=== PATIENT | male | born 1955 | race Caucasian/White ===

== ENCOUNTER → 2016-08-06 | Outpatient (CLI) | payer OTHER ==
[~2016-08-06] MED LIST: ASPI81TA28 PO; CALC12502 PO; CALC500C3 PO; CARB25TA16 PO; CHOL100010 PO; CHOL20007 PO; CHOLTAB3 PO; CYAN3INJ IM; CYNI1000 IM; FERR325T51 PO; FRRS300 PO; INSDGIPEN SC; INSUINJ4 SQ; NVLGI SC; NVLGI/PEN SQ; SERT50TA PO; SIMV10TA2 PO
[2016-08-06 14:56] LABS: URINE APPEARANCE CLEAR (CLEAR); URINE BILIRUBIN NEG (NEG); URINE COLOR YELLOW; URINE NITRITE NEG (NEG); URINE SPECIFIC GRAVITY 1.024 (1.000-1.030); UROBILINOGEN NEG (NEG)
[2016-08-06 15:14] LABS: MANUAL MICROSCOPIC REQUIRED? NO; REVIEW REQ? YES
== END | disposition home or self-care (01) ==
LOC: C.LAB1850 12:32
PROVIDERS: ATTEND Internal Medicine
DX: R35.0 Frequency of micturition (principal); R30.9 Painful micturition, unspecified

== ENCOUNTER → 2016-08-18 | Outpatient (CLI) | payer OTHER ==
--- NOTE | 2016-08-18 11:58 | DIAGNOSTIC IMAGING REPORT ---
ULTRASOUND KIDNEYS AND BLADDER CLINICAL HISTORY: Urinary frequency. Dysuria. COMPARISON STUDY: Abdominal CT dated 02/19/2010. TECHNIQUE: Real-time, grayscale, and color flow sonography of the kidneys and bladder is performed. Images are reviewed in the transverse and longitudinal planes. FINDINGS: Kidneys: The kidneys are normal in size and echotexture. The right kidney measures 10.0 cm in length and the left kidney measures 10.5 cm in length. There is no hydronephrosis. No shadowing renal calculi are identified. There is no sonographic evidence of contour deforming renal mass lesion. No perinephric fluid is identified. Bladder: The prostate gland is mildly enlarged and demonstrates median lobe hypertrophy. A shadowing calcification is noted in the prostate gland. The bladder is partially decompressed and grossly unremarkable. Bilateral ureteral jets were seen. IMPRESSION: 1. The kidneys are normal in size and without hydronephrosis. 2. Prostatomegaly. 3. The bladder is partially decompressed and grossly unremarkable. Electronically signed by: John Foss M.D. 08/18/2016 11:56 AM Dictated Date/Time: 08/18/2016 11:54 AM
== END | disposition home or self-care (01) ==
LOC: C.ULTR 10:39
PROVIDERS: ATTEND Internal Medicine
DX: R30.0 Dysuria (principal); R35.0 Frequency of micturition; N40.0 Benign prostatic hyperplasia without lower urinary tract symptoms

== ENCOUNTER 2016-08-31 02:11 | Emergency (ER) | payer OTHER ==
[~2016-08-31] VITALS: Ht 157.5 cm; Wt 52.2 kg
[~2016-08-31 02:11] MED LIST changes: -CALC12502 PO; -CHOL20007 PO; -CYNI1000 IM; -FRRS300 PO; -INSDGIPEN SC; -NVLGI/PEN SQ
[2016-08-31 02:14] VITALS: TEMP 36.9; Ht 157.5 cm; Wt 52.2 kg
[2016-08-31 04:12] LABS: BASO % 0.5 %; BASO ABS # 0.03 K/uL (0-0.2); COMPLETE YES; EOS % 0.5 %; HEMATOCRIT 43.9 % (42-52); LYMPH % 19.9 %; LYMPH ABS # 1.12 K/uL (1.2-3.4); MEAN CELL VOLUME 98.2 fL (80-100); MEAN CORPUSCULAR HEMOGLOBIN 33.8 pg (25-34); MEAN CORPUSCULAR HGB CONC 34.4 g/dl (32-36); MEAN PLATELET VOLUME 11.1 fL (7.4-10.4); MONO % 10.6 %; NEUT % 68.5 %; PLATELET COUNT 174 K/uL (130-400); RED BLOOD COUNT 4.47 M/uL (4.7-6.1); WHITE BLOOD COUNT 5.64 K/uL (4.8-10.8)
[2016-08-31 04:41] LABS: BLOOD UREA NITROGEN 22 mg/dl (7-18); CALCIUM 9.4 mg/dl (8.5-10.1); CARBON DIOXIDE 34 mmol/L (21-32); CHLORIDE 104 mmol/L (98-107); GLUCOSE 46 mg/dl (70-99); POTASSIUM 3.9 mmol/L (3.5-5.1); SODIUM 145 mmol/L (136-145)
[2016-08-31] MEDS ORDERED: ONDANSETRON INJ 2 MG/ML 2 ML VIAL IV STA (04:49)
--- NOTE | 2016-08-31 06:25 | EMERGENCY ROOM VISIT NOTE ---
History First contact with patient: 02:23 Chief Complaint: OTHER COMPLAINT Stated Complaint: DIABETIC - VOMITING NOT SURE IF HIGH OR LOW History of Present Illness The patient is a 61 year old male who presents to the Emergency Room with complaints of one episode of vomiting that is completely resolved he was to be monitored for his blood sugar who is diabetic. Patient states he took 6 units of short-acting insulin before eating tonight. His blood sugar was 234 prior to doing this. He threw up and now feels much better. He did this at midnight. He has not repeated his blood sugars since then. Patient denies chest pain, dyspnea, abdominal pain, fever, chills, diarrhea, polydipsia, polyuria, lightheadedness, dizziness, weakness, syncope, cold symptoms or any other medical complaints. Patient states she just wants to have his blood sugar checked out and hang out here for a while. Review of Systems See HPI for pertinent positives & negatives. A total of 10 systems reviewed and were otherwise negative. Past Medical/Surgical History Medical Problems: (1) Dementia, Unspecified, Without Behavioral Disturbance (2) Diab W Oth Spec Manifest, Type I [Juvenile Type], Not Uncntr (3) Hyperglycemia (4) Hyperglycemia (5) Hyperlipidemia Nec/Nos (6) Hypoglycemia Nos (7) Insulin overdose (8) Mood disorder (9) Parkinson disease (10) Schizophrenia Nos-Unspec Family History Hypertension Social History Smoking Status: Former Smoker Alcohol Use: none Drug Use: none Marital Status: single Housing Status: other Occupation Status: disabled Current/Historical Medications Scheduled Aspirin (Aspirin Ec), 81 MG PO QAM Carbidopa/Levodopa (Sinemet Cr 25MG/100MG), 1 TAB PO QID Cholecalciferol (Vitamin D), 2,000 INTER.UNIT PO QAM Cyanocobalamin (Vitamin B-12 Inj), 1,000 MCG IM MONTHLY Ferrous Sulfate (Iron Supplement), 325 MG PO QPM Insulin Aspart (Novolog), 6 UNITS SC TIDM Insulin Glargine (Lantus Solostar Pen), 14 UNITS SQ DAILY @NOON Sertraline (Zoloft), 50 MG PO QPM Simvastatin (Zocor), 10 MG PO QPM Scheduled PRN Calcium Carbonate (Tums), 1 TAB PO Q4 PRN for GI Upset Allergies Coded Allergies: No Known Allergies (Unverified , 12/02/15) Physical Exam Vital Signs Date Time Temp Pulse Resp B/P Pulse Ox O2 Delivery O2 Flow Rate FiO2 08/31/16 04:30 57 18 134/75 97 Room Air 08/31/16 02:14 36.9 79 20 136/89 94 Room Air Physical Exam VITALS: Vitals are noted on the nurse's note and reviewed by myself. Vital signs stable. GENERAL: Disheveled male answering questions appropriately, in no acute distress , nondiaphoretic, well-developed well-nourished. SKIN: The skin was without rashes, erythema, edema, or bruising. There is no tenting of the skin. Capillary reflex less than 2 seconds. HEAD: Normocephalic atraumatic. EARS: External auditory canals clear, tympanic membranes pearly garcia without erythema or effusion bilaterally. EYES: Pupils equal round and reactive to light and accommodation. Conjunctivae without injection, sclerae without icterus. Extraocular movements intact. NOSE: Patent, turbinates without inflammation or discharge. MOUTH: Mucous membranes moist. Pharynx without erythema or exudate. Uvula midline. Airway patent. Tongue does not deviate. NECK: Supple without nuchal rigidity. No lymphadenopathy. No thyromegaly. Cervical spine is nontender. No JVD. HEART: Regular rate and rhythm LUNGS: Clear to auscultation bilaterally without wheezes, rales or rhonchi. No dullness to percussion. No retractions or accessory muscle use. ABDOMEN: Positive bowel sounds x 4. Normal tympanic percussion. Soft, nontender, without masses or organomegaly. Billy sign negative. No guarding or rebound tenderness. MUSCULOSKELETAL: No muscle atrophy, erythema, or edema noted. NEURO: Patient was alert and oriented to person place and time. Normal sensation to light and sharp touch. No focal neurological deficits. Medical Decision & Procedures Laboratory Results 08/31/16 04:00 Red Blood Count 4.47, Mean Corpuscular Volume 98.2, Mean Corpuscular Hemoglobin 33.8, Mean Corpuscular Hemoglobin Concent 34.4, Mean Platelet Volume 11.1, Neutrophils (%) (Auto) 68.5, Lymphocytes (%) (Auto) 19.9, Monocytes (%) (Auto) 10.6, Eosinophils (%) (Auto) 0.5, Basophils (%) (Auto) 0.5, Neutrophils # (Auto ) 3.86, Lymphocytes # (Auto) 1.12, Monocytes # (Auto) 0.60, Eosinophils # (Auto ) 0.03, Basophils # (Auto) 0.03 08/31/16 04:00 Test 08/31/16 04:00 08/31/16 05:58 08/31/16 06:08 White Blood Count 5.64 K/uL (4.8-10.8) Red Blood Count 4.47 M/uL (4.7-6.1) Hemoglobin 15.1 g/dL (14.0-18.0) Hematocrit 43.9 % (42-52) Mean Corpuscular Volume 98.2 fL (80-100) Mean Corpuscular Hemoglobin 33.8 pg (25-34) Mean Corpuscular Hemoglobin Concent 34.4 g/dl (32-36) Platelet Count 174 K/uL (130-400) Mean Platelet Volume 11.1 fL (7.4-10.4) Neutrophils (%) (Auto) 68.5 % Lymphocytes (%) (Auto) 19.9 % Monocytes (%) (Auto) 10.6 % Eosinophils (%) (Auto) 0.5 % Basophils (%) (Auto) 0.5 % Neutrophils # (Auto) 3.86 K/uL (1.4-6.5) Lymphocytes # (Auto) 1.12 K/uL (1.2-3.4) Monocytes # (Auto) 0.60 K/uL (0.11-0.59) Eosinophils # (Auto) 0.03 K/uL (0-0.5) Basophils # (Auto) 0.03 K/uL (0-0.2) RDW Standard Deviation 48.1 fL (36.4-46.3) RDW Coefficient of Variation 13.4 % (11.5-14.5) Immature Granulocyte % (Auto) 0.0 % Immature Granulocyte # (Auto) 0.00 K/uL (0.00-0.02) Anion Gap 7.0 mmol/L (3-11) Est Creatinine Clear Calc Drug Dose 70.7 ml/min Estimated GFR () 111.0 Estimated GFR (Non- 95.7 BUN/Creatinine Ratio 28.0 (10-20) Calcium Level 9.4 mg/dl (8.5-10.1) Troponin I < 0.015 ng/ml (0-0.045) Bedside Glucose 175 mg/dl (70-99) Bedside Troponin I 0.000 ng/ml (0-0.045) Medications Administered Medications (Trade) Dose Ordered Sig/Emelina Route Start Time Stop Time Status Last Admin Dose Admin Ondansetron HCl (Zofran Inj) 4 mg NOW STAT IV 08/31/16 04:49 08/31/16 04:50 DC 08/31/16 04:54 4 MG ED Course Prior records/ancillary studies reviewed. Triage Nursing notes reviewed. The patient's history was concerning for nausea, vomiting, that has now resolved. Differential diagnosis: Etiologies such as gastritis, food borne illness, infections, obstruction, blood sugar abnormality, as well as others were entertained. Physical examination findings: As above. Abdominal examination revealed no tenderness. Vital signs reviewed and revealed stable. ER treatment provided: Juice, peanut butter and crackers On reassessment the patient felt better. Patient was tolerating p.o. intake. Diagnostics interpretation by me: EKG: Normal sinus, no acute ST-T changes, frequent PACs, normal axis. EKG compared to prior EKG with previous frequent PACs noted. Impression normal sinus rhythm with frequent PACs interpreted by myself The labs revealed fingerstick of 55. Repeat was still low so further blood work was ordered Stable H&H 2 negative troponins 2 hours apart This appears to be consistent with vomiting times once that has resolved on its own with low blood sugar that is now resolved. The patient just one to be observed for a few hours to make sure his blood sugar was okay. I felt this is reasonable. He was asymptomatic. He ate a full meal while he was here. Stable vital signs. Repeat blood sugar was improved. 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 He was advised to return to the ER me the for weakness, fevers , blood glucose problems, worsening signs or symptoms or as needed. He was advised follow-up family care in a few days. By the evaluation outlined above emergent etiologies such as appendicitis, diverticulitis, obstruction, cardiac sources, mesenteric ischemia, aortic pathology, inflammatory bowel disease, renal colic, PUD, biliary pathology, UTI, as well as others were deemed relatively unlikely. The pt informed about the findings as listed above. All questions were answered and pleased with the treatment. Return instructions were outlined and the patient was discharged in stable condition. Referral: The patient was referred to their primary care physician for follow-up in 2 to 3 days for a recheck of the current condition. Case reviewed with my attending. Medical Decision as above Impression Primary Impression: Hypoglycemia Nos Departure Information Dispostion Home / Self-Care Condition GOOD Referrals Marcelo Hardin M.D. (PCP) Patient Instructions My [facility] Additional Instructions Monitor your blood sugars. Eat regular meals. Continue your current medications. Follow up with family care in 2-3 days. Return to ER sooner for chest pain, difficulty breathing, blood sugar problems, weakness, fevers, worsening signs or symptoms or as needed.
[2016-08-31 06:34] VITALS: BP 109/68; PULSE 76; O2SAT 95
[2016-08-31] MEDS ORDERED: CHOL20007 PO (19:47)
[2016-08-31] MEDS ORDERED: CALC12502 PO (19:55)
== END 2016-08-31 06:32 | disposition home or self-care (01) ==
LOC: C.EDB 02:13 → C.EDA 06:32
DX: E10.649 Type 1 diabetes mellitus with hypoglycemia without coma (principal); F03.90 Unspecified dementia, unspecified severity, without behavioral disturbance, psychotic disturbance, mood disturbance, and anxiety; E78.5 Hyperlipidemia, unspecified; F39 Unspecified mood [affective] disorder; G20 Parkinson's disease; F20.9 Schizophrenia, unspecified; Z87.891 Personal history of nicotine dependence; Z79.82 Long term (current) use of aspirin; Z79.4 Long term (current) use of insulin

== ENCOUNTER 2016-08-31 18:56 | Emergency (ER) | payer OTHER ==
[~2016-08-31] VITALS: Ht 157.5 cm; Wt 52.2 kg
[2016-08-31 19:01] VITALS: TEMP 36.9; Ht 157.5 cm; Wt 52.2 kg
[2016-08-31] MEDS ORDERED: SODIUM CHLORIDE 0.9% 1000ML 1,000 ML IV STA (19:10)
[2016-08-31] MEDS ORDERED: NovoLIN-R INSULIN PER UNIT CHARGE IV STA (19:36)
[2016-08-31 19:46] LABS: ISTAT CREATININE 0.8 mg/dl (0.6-1.3); ISTAT IONIZED CALCIUM 1.14 mmol/l (1.12-1.32)
[2016-08-31] MEDS ORDERED: CHOL20007 PO (19:47)
[2016-08-31 19:49] LABS: URINE APPEARANCE CLEAR (CLEAR); URINE BILIRUBIN NEG (NEG); URINE COLOR YELLOW; URINE EPITHELIAL CELL AUTO 0-5 /lpf (0-5); URINE NITRITE NEG (NEG); URINE PH 7.5 (4.5-7.5); URINE SPECIFIC GRAVITY 1.039 (1.000-1.030); UROBILINOGEN NEG (NEG); ZZUR CULT IF INDIC CLEAN CATCH NO
[2016-08-31 19:50] LABS: MANUAL MICROSCOPIC REQUIRED? NO; REVIEW REQ? NO
[2016-08-31] MEDS ORDERED: CALC12502 PO (19:55)
[2016-08-31 20:49] VITALS: BP 105/72; PULSE 66; O2SAT 99
--- NOTE | 2016-08-31 20:50 | EMERGENCY ROOM VISIT NOTE ---
History Report prepared by Kimmy: Erickson Rankin Under the Supervision of: Dr. Milton Garcia M.D. First contact with patient: 19:05 Chief Complaint: OTHER COMPLAINT Stated Complaint: HIGH BLOOD SUGAR History of Present Illness The patient is a 61 year old male who presents to the Emergency Room with complaints of sudden hyperglycemia beginning just prior to arrival. He notes he was seen in the ED this morning for hypoglycemia. The patient states his BSG was almost 500. He notes he was told to only take 3 units. The patient states he vomited this morning, but has not vomited since. He denies chest pain, abdominal pain, and vomiting. The patient notes he lives alone. Source of History: patient Onset: just prior to arrival Position: other (global) Quality: other (hyperglycemia) Timing: other (sudden) Associated Symptoms: No abdominal pain, No chest pain, No vomiting Review of Systems See HPI for pertinent positives & negatives. A total of 10 systems reviewed and were otherwise negative. Past Medical & Surgical Medical Problems: (1) Dementia, Unspecified, Without Behavioral Disturbance (2) Diab W Oth Spec Manifest, Type I [Juvenile Type], Not Uncntr (3) Hyperglycemia (4) Hyperglycemia (5) Hyperlipidemia Nec/Nos (6) Hypoglycemia Nos (7) Insulin overdose (8) Mood disorder (9) Parkinson disease (10) Schizophrenia Nos-Unspec Family History Hypertension Social History Smoking Status: Never Smoker Alcohol Use: none Drug Use: none Marital Status: single Housing Status: other Occupation Status: disabled Current/Historical Medications Scheduled Aspirin (Aspirin Ec), 81 MG PO QAM Calcium Carbonate (Os-Kenneth 500), 1,000 MG PO BID Carbidopa/Levodopa (Sinemet Cr 25MG/100MG), 1 TAB PO QID Cholecalciferol (Vitamin D3), 1 TAB PO DAILY Cyanocobalamin (Vitamin B-12 Inj), 1,000 MCG IM MONTHLY Ferrous Sulfate (Iron Supplement), 325 MG PO QPM Insulin Aspart (Novolog), 6 UNITS SC TIDM Insulin Glargine (Lantus Solostar Pen), 14 UNITS SQ DAILY @NOON Sertraline (Zoloft), 50 MG PO QPM Simvastatin (Zocor), 10 MG PO QPM Allergies Coded Allergies: No Known Allergies (Unverified , 12/02/15) Physical Exam Vital Signs Date Time Temp Pulse Resp B/P Pulse Ox O2 Delivery O2 Flow Rate FiO2 08/31/16 20:49 66 16 105/72 99 Room Air 08/31/16 19:01 36.9 80 20 122/77 94 Room Air Physical Exam GENERAL: Patient is unkempt appearing, in no distress, and vomit on his pants. HEENT: No acute trauma, normocephalic atraumatic, mucous membranes moist, no nasal congestion, no scleral icterus. NECK: No stridor, no adenopathy, no meningismus, trachea is midline. LUNGS: No dyspnea. Clear to auscultation and equal bilaterally. No wheeze, no rhonchi. HEART: Regular rate and rhythm. No murmurs, rubs, gallops appreciated. ABDOMEN: Soft, nontender, bowel sounds positive, no masses appreciated, no peritonitis. BACK: No midline tenderness, no CVA tenderness EXTREMITIES: Normal motion all extremities, no cyanosis, no edema. NEUROLOGIC: Alert and oriented, no acute motor or sensory deficits, no focal weakness, cranial nerves grossly intact. SKIN: No rash, no jaundice, no diaphoresis. Medical Decision & Procedures Laboratory Results Test 08/31/16 19:25 08/31/16 19:31 08/31/16 20:47 Urine Color YELLOW Urine Appearance CLEAR (CLEAR) Urine pH 7.5 (4.5-7.5) Urine Specific Claridge 1.039 (1.000-1.030) Urine Protein NEG (NEG) Urine Glucose (UA) 3+ (NEG) Urine Ketones NEG (NEG) Urine Occult Blood NEG (NEG) Urine Nitrite NEG (NEG) Urine Bilirubin NEG (NEG) Urine Urobilinogen NEG (NEG) Urine Leukocyte Esterase NEG (NEG) Urine WBC (Auto) 1-5 /hpf (0-5) Urine RBC (Auto) 0-4 /hpf (0-4) Urine Hyaline Casts (Auto) 0 /lpf (0-5) Urine Epithelial Cells (Auto) 0-5 /lpf (0-5) Urine Bacteria (Auto) NEG (NEG) Bedside Hemoglobin 15.0 g/dl (14.0-18.0) Bedside Hematocrit 44 % (42-52) Bedside Sodium 139 mEq/L (135-144) Bedside Potassium 4.2 mEq/L (3.3-5.0) Bedside Chloride 97 mEq/L (101-112) Bedside Total CO2 29 mEq/l (24-31) Anion Gap 18.0 mmol/L (16-25) Bedside Blood Urea Nitrogen 24 mg/dl (7-18) Bedside Creatinine 0.8 mg/dl (0.6-1.3) Bedside Glucose (other) 424 mg/dl (70-99) Bedside Ionized Calcium (Ruddy) 1.14 mmol/l (1.12-1.32) Bedside Glucose 299 mg/dl (70-99) Laboratory results as reviewed by me. Medications Administered Medications (Trade) Dose Ordered Sig/Emelina Route Start Time Stop Time Status Last Admin Dose Admin Sodium Chloride (Nss 1000ml) 1,000 ml @ 999 mls/hr Q1H1M STAT IV 08/31/16 19:10 08/31/16 20:10 DC 08/31/16 19:10 999 MLS/HR Insulin Human Regular (novoLIN-R U-100 PER UNIT) 6 units NOW STAT IV 08/31/16 19:36 08/31/16 19:37 DC 08/31/16 19:44 6 UNITS ED Course 1906: The patient was evaluated in room C2B. A complete history and physical exam was performed. 1909: Ordered Sodium Chloride 1,000 ml @ 999 mls/hr IV. 1935: Ordered Insulin Human Regular 6 units IV. 2038: Reevaluated the patient, and he feels fine and would like to go home. Discussed results and discharge instructions: He verbalized understanding and agreement. The patient is ready for discharge. Medical Decision Differential: Sepsis, Infectious (UTI/Pneumonia/Meningitis/etc), Metabolic/ Electrolyte Abnormality, Cardiac, Hepatic, Endocrine, Toxicologic, Neurologic, amongst other pathologies entertained. 61 yr old male arrives with a-symptomatic hyperglycemia. Was seen earlier for hypoglycemia and since his BG has been slowly going up and thus he used 3 U Insulin a few hours ago. He is in no distress and stable. He is not in DKA. He is not septic appearing. He states he feels fine and wishes to go home. Given fluids and IV insulin with improving sugars and patient wishing discharge. Stable and comfortable. Advised he monitor sugars closely and that he should follow his current medication regimen. Aware RTED if symptoms or blood sugars getting out of control. Impression Primary Impression: Hyperglycemia Scribe Attestation The scribe's documentation has been prepared under my direction and personally reviewed by me in its entirety. I confirm that the note above accurately reflects all work, treatment, procedures, and medical decision making performed by me. Departure Information Dispostion Home / Self-Care Referrals Marcelo Hardin M.D. (PCP) Forms HOME CARE DOCUMENTATION FORM, IMPORTANT VISIT INFORMATION, WORK / SCHOOL INSTRUCTIONS Patient Instructions ED Hyperglycemia Diabetic, My [facility] Additional Instructions Continue you normal medications. Avoid sugar and carbohydrates.
== END 2016-08-31 20:58 | disposition home or self-care (01) ==
LOC: C.EDB 18:58 → C.EDC 20:58
DX: E10.65 Type 1 diabetes mellitus with hyperglycemia (principal); F03.90 Unspecified dementia, unspecified severity, without behavioral disturbance, psychotic disturbance, mood disturbance, and anxiety; E78.5 Hyperlipidemia, unspecified; G20 Parkinson's disease; F20.9 Schizophrenia, unspecified; Z79.82 Long term (current) use of aspirin; Z79.4 Long term (current) use of insulin

== ENCOUNTER → 2016-10-25 | Outpatient (CLI) | payer OTHER ==
[~2016-10-25] MED LIST changes: +CALC12502 PO; -CALC500C3 PO; -CHOL100010 PO; +CHOL20007 PO; -CHOLTAB3 PO; +CYNI1000 IM; +FRRS300 PO; +INSDGIPEN SC; +NVLGI/PEN SQ
[2016-10-25 17:32] LABS: BASO % 0.4 %; BASO ABS # 0.02 K/uL (0-0.2); COMPLETE YES; EOS % 1.3 %; HEMATOCRIT 39.9 % (42-52); LYMPH % 26.2 %; LYMPH ABS # 1.23 K/uL (1.2-3.4); MEAN CELL VOLUME 98.3 fL (80-100); MEAN CORPUSCULAR HEMOGLOBIN 32.5 pg (25-34); MEAN CORPUSCULAR HGB CONC 33.1 g/dl (32-36); MEAN PLATELET VOLUME 11.6 fL (7.4-10.4); MONO % 7.2 %; NEUT % 64.9 %; PLATELET COUNT 165 K/uL (130-400); RED BLOOD COUNT 4.06 M/uL (4.7-6.1); WHITE BLOOD COUNT 4.69 K/uL (4.8-10.8)
[2016-10-25 17:56] LABS: BLOOD UREA NITROGEN 19 mg/dl (7-18); BUN/CREATININE RATIO 23.4 (10-20); CALCIUM 9.3 mg/dl (8.5-10.1); CARBON DIOXIDE 31 mmol/L (21-32); CHLORIDE 104 mmol/L (98-107); GLUCOSE 238 mg/dl (70-99); POTASSIUM 4.4 mmol/L (3.5-5.1); SODIUM 140 mmol/L (136-145)
[2016-10-25 18:00] LABS: PROSTATE SPECIFIC ANTIGEN 0.671 ng/ml (0.000-4.000)
[2016-10-26 10:20] LABS: ESTIMATED AVERAGE GLUCOSE 157 mg/dl; HA1C FLAG Normal (Normal)
== END | disposition home or self-care (01) ==
LOC: C.LAB1850 16:39
PROVIDERS: ATTEND Physician Assistant
DX: E10.9 Type 1 diabetes mellitus without complications (principal); N40.0 Benign prostatic hyperplasia without lower urinary tract symptoms

== ENCOUNTER → 2016-12-30 | Outpatient (CLI) | payer OTHER | END | disposition home or self-care (01) | LOC: C.LABSPEC 15:37 | PROVIDERS: ATTEND Nurse Practitioner Family | DX: R35.0 Frequency of micturition (principal) ==

== ENCOUNTER 2017-02-12 23:36 | Emergency (ER) | payer OTHER ==
[~2017-02-12] VITALS: Ht 157.5 cm; Wt 54.6 kg
[~2017-02-12 23:36] MED LIST changes: -CYNI1000 IM; -FRRS300 PO; -INSDGIPEN SC; -NVLGI/PEN SQ
[2017-02-12 23:50] VITALS: TEMP 36.7; O2SAT 96; Ht 157.5 cm; Wt 54.6 kg
[2017-02-13 00:01] VITALS: BP 100/64
--- NOTE | 2017-02-13 00:12 | EMERGENCY ROOM VISIT NOTE ---
History Report prepared by Kimmy: Sarina Bear Under the Supervision of: Dr. Regis Reyes D.O. 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 The patient presents to the ED by EMS. He received 2 tubes of glucose in route. He was [place] at a concert when he stumbled and fell. He is unsure if he hit his head. He states that he feels well and was feeling well earlier. He has a history of diabetes and takes NovoLog and Lantus. He last ate at 1800 and found that his blood sugar was high so he took some extra insulin. He last took insulin at 1830. He did eat some crackers while he was at the concert. He usually takes his last dose of insulin at midnight. Source of History: patient, EMS Onset: TEACHER TUTOR Position: other (global) Quality: other (hypoglycemia) Timing: other (persistent) Note: Pt reports stumbling, fall. Review of Systems See HPI for pertinent positives & negatives. A total of 10 systems reviewed and were otherwise negative. Past Medical & Surgical Medical Problems: (1) Dementia, Unspecified, Without Behavioral Disturbance (2) Diab W Oth Spec Manifest, Type I [Juvenile Type], Not Uncntr (3) Hyperglycemia (4) Hyperglycemia (5) Hyperlipidemia Nec/Nos (6) Hypoglycemia Nos (7) Insulin overdose (8) Mood disorder (9) Parkinson disease (10) Schizophrenia Nos-Unspec Family History Hypertension Social History Smoking Status: Never Smoker Alcohol Use: none Drug Use: none Marital Status: single Housing Status: other Occupation Status: disabled Current/Historical Medications Scheduled Aspirin (Aspirin Ec), 81 MG PO QAM Carbidopa/Levodopa (Sinemet Cr 25MG/100MG), 1 TAB PO QID Cholecalciferol (Vitamin D3), 2,000 UNIT PO DAILY Cyanocobalamin (Cyanocobalamin), 1,000 MCG IM MONTHLY Ferrous Sulfate (Ferrous Sulfate), 325 MG PO QPM Insulin Aspart (Novolog Flexpen), 6 UNITS SQ TIDM Insulin Glargine (Lantus Solostar), 15 UNITS SC QAM Sertraline (Zoloft), 50 MG PO QPM Simvastatin (Zocor), 10 MG PO QPM Allergies Coded Allergies: No Known Allergies (Unverified , 02/13/17) Physical Exam Vital Signs Date Time Temp Pulse Resp B/P (MAP) Pulse Ox O2 Delivery O2 Flow Rate FiO2 02/13/17 00:36 59 18 02/13/17 00:01 100/64 02/12/17 23:50 36.7 64 18 113/64 96 Room Air 02/12/17 23:45 65 02/12/17 23:41 113/64 Physical Exam GENERAL: Patient is awake, alert, non anxious appearing, and comfortable. GCS of 15. EYES: The conjunctivae are clear. The pupils are round and reactive. EARS, NOSE, MOUTH AND THROAT: The nose is without any evidence of any deformity. Mucous membranes are moist tongue is midline NECK: The neck is nontender and supple. RESPIRATORY: Normal respiratory effort is noted there is no evidence of wheezing rhonchi or rales CARDIOVASCULAR: Irregular rhythm noted to auscultation GASTROINTESTINAL: The abdomen is soft. Bowel sounds are present in all quadrants. Abdomen is nontender MUSCULOSKELETAL/EXTREMITIES: There is no evidence of gross deformity full range of motion is noted in the hips and shoulders SKIN: There is no obvious evidence of any rash. There are no petechiae, pallor or cyanosis noted. NEUROLOGIC: Patient is awake alert and oriented x3, moves all extremities symmetrically. Medical Decision & Procedures ER Provider Diagnostic Interpretation: Radiology results as stated below per my review and [employer] radiologist interpretation: CT head: No evidence of acute infarct, hemorrhage, mass, or edema. Minimal chronic small vessel ischemic disease. No mucosal thickening in the paranasal sinuses. No acute osseous abnormality. Laboratory Results Test 02/12/17 23:40 Bedside Glucose 149 mg/dl (70-99) Laboratory results per my review. ECG Indication: other (fall) Rate (beats per minute): 68 Rhythm: sinus rhythm Findings: other (sinus arrhythmia noted, no acute ST segment abnormality) Comparison ECG Date: 31-Aug-2016 Change: no significant change ED Course 2340: The patient was evaluated in room B5. A complete history and physical examination were performed. 0036: Upon reevaluation, the patient is resting comfortably. I discussed the results and treatment plan with him. He verbalized agreement of the treatment plan. He was discharged home. Medical Decision Prior records/ancillary studies reviewed and summarized above. Nursing notes reviewed. Additional history obtained from EMS. The patient's history was concerning for hypoglycemia. Differential diagnosis: Etiologies such as metabolic, infection, hypo/hyperglycemia, electrolyte abnormalities, cardiac sources, intracerebral event, toxicologic, neurologic, as well as others were entertained. Medication Reconciliation: I attest that I have personally reviewed the patient' s current medications list. Blood pressure screening: Patient was found to have normal blood pressure on screening and does not require follow-up. The patient is a 61-year-old male who presented to the emergency department for evaluation of altered mental status. The patient was found have hypoglycemia prior to arrival. He was treated with oral glucose but he was found to have an irregular heart rhythm. I received a medical command phone call about this patient. The patient's EKG does not appear to be change from previous. I reviewed the patient's medications with him and at this time he does appear to be taking insulin. He states that he missed a meal this evening and that is likely what led to the patient's hypoglycemia. The patient has been seen in our facility for similar complaints in the past. He was reevaluated multiple times. He did have a fall and I did review the patient's CT report with him. He was encouraged to follow-up with his primary care physician since possible and continue to monitor his blood sugar. He was also encouraged to try to avoid missing meals and return to the emergency department immediately if symptoms change worsen or the need arises. Impression Primary Impression: Hypoglycemia Additional Impression: Head injury Scribe Attestation The scribe's documentation has been prepared under my direction and personally reviewed by me in its entirety. I confirm that the note above accurately reflects all work, treatment, procedures, and medical decision making performed by me. Departure Information Dispostion Home / Self-Care Referrals Marcelo Hardin M.D. (PCP) Forms HOME CARE DOCUMENTATION FORM, IMPORTANT VISIT INFORMATION, WORK / SCHOOL INSTRUCTIONS Patient Instructions Hypoglycemia, My [facility] [employer] Additional Instructions Continue to monitor your blood sugar as previous. Continue all medications as prescribed. Follow-up with your family doctor as possible. Problem Qualifiers Additional Impression: Head injury Encounter type: initial encounter Qualified Codes: S09.90XA - Unspecified injury of head, initial encounter
[2017-02-13] MEDS ORDERED: CYNI1000 IM (00:27)
[2017-02-13] MEDS ORDERED: INSDGIPEN SC (00:27)
[2017-02-13] MEDS ORDERED: FRRS300 PO (00:27)
[2017-02-13] MEDS ORDERED: NVLGI/PEN SQ (00:28)
[2017-02-13 00:36] VITALS: PULSE 59
--- NOTE | 2017-02-13 05:59 | DIAGNOSTIC IMAGING REPORT ---
HEAD WITHOUT CONTRAST (CT) CT DOSE: 537.48 mGy.cm HISTORY: Trauma fall TECHNIQUE: Multiaxial CT images of the head were performed without the use of intravenous contrast. Comparison: 03/20/2011 Findings: The paranasal sinuses and mastoid air cells are clear. The calvarium and skull base are intact. The ventricles and sulci are within normal limits. There is no mass, hematoma, midline shift, or acute infarct. Impression: No acute intracranial abnormality. The above report was generated using voice recognition software. It may contain grammatical, syntax or spelling errors. Electronically signed by: Hi Rogers M.D. 02/13/2017 5:58 AM Dictated Date/Time: 02/13/2017 5:57 AM
== END 2017-02-13 00:55 | disposition home or self-care (01) ==
LOC: EDBD 23:36 → C.EDB 23:37
DX: S09.90XA Unspecified injury of head, initial encounter (principal); W19.XXXA Unspecified fall, initial encounter; Y92.89 Other specified places as the place of occurrence of the external cause; E11.649 Type 2 diabetes mellitus with hypoglycemia without coma; Z79.4 Long term (current) use of insulin; F03.90 Unspecified dementia, unspecified severity, without behavioral disturbance, psychotic disturbance, mood disturbance, and anxiety; F20.9 Schizophrenia, unspecified; G20 Parkinson's disease; F39 Unspecified mood [affective] disorder; Z82.49 Family history of ischemic heart disease and other diseases of the circulatory system; Z79.82 Long term (current) use of aspirin; Z79.899 Other long term (current) drug therapy

== ENCOUNTER → 2017-07-05 | Outpatient (CLI) | payer OTHER ==
[~2017-07-05] MED LIST changes: -CALC12502 PO; -CYAN3INJ IM; +CYNI1000 IM; -FERR325T51 PO; +FRRS300 PO; +INSDGIPEN SC; -INSUINJ4 SQ; -NVLGI SC; +NVLGI/PEN SQ
[2017-07-05 16:40] LABS: BASO % 0.4 %; BASO ABS # 0.02 K/uL (0-0.2); COMPLETE YES; EOS % 0.4 %; LYMPH % 21.5 %; LYMPH ABS # 1.12 K/uL (1.2-3.4); MEAN CELL VOLUME 99.3 fL (80-100); MEAN CORPUSCULAR HEMOGLOBIN 32.7 pg (25-34); MEAN CORPUSCULAR HGB CONC 32.9 g/dl (32-36); MEAN PLATELET VOLUME 11.7 fL (7.4-10.4); MONO % 8.6 %; NEUT % 69.1 %; PLATELET COUNT 169 K/uL (130-400); RED BLOOD COUNT 4.13 M/uL (4.7-6.1); WHITE BLOOD COUNT 5.22 K/uL (4.8-10.8)
[2017-07-05 17:00] LABS: BLOOD UREA NITROGEN 23 mg/dl (7-18); BUN/CREATININE RATIO 23.7 (10-20); CALCIUM 9.3 mg/dl (8.5-10.1); CARBON DIOXIDE 34 mmol/L (21-32); CHLORIDE 99 mmol/L (98-107); CREATININE 0.96 mg/dl (0.60-1.40); GLUCOSE 379 mg/dl (70-99); POTASSIUM 4.6 mmol/L (3.5-5.1); SODIUM 134 mmol/L (136-145)
[2017-07-05 17:13] LABS: BETA-HYDROXYBUTYRATE 2.66 mg/dL (0.2-2.81)
[2017-07-06 06:45] LABS: ESTIMATED AVERAGE GLUCOSE 183 mg/dl; HA1C FLAG Normal (Normal)
== END | disposition home or self-care (01) ==
LOC: C.LAB1850 15:48
PROVIDERS: ATTEND Physician Assistant
DX: E10.9 Type 1 diabetes mellitus without complications (principal)

== ENCOUNTER 2017-09-15 20:27 | Emergency (ER) | payer OTHER ==
[~2017-09-15] VITALS: Ht 157.5 cm; Wt 55.0 kg
[2017-09-15 20:55] VITALS: Ht 157.5 cm; Wt 55.0 kg
--- NOTE | 2017-09-15 21:41 | DIAGNOSTIC IMAGING REPORT ---
HEAD CT NONCONTRAST CT DOSE: 537.48 mGy.cm HISTORY: Fall/head injury TECHNIQUE: Multiaxial CT images of the head were performed without the use of intravenous contrast. Automated exposure control was utilized for this study. A dose lowering technique was utilized adhering to the principles of ALARA. Comparison: Head CT 02/13/2017. Findings: The paranasal sinuses and mastoid air cells are clear. The calvarium and skull base are intact. The ventricles and sulci are within normal limits. There is no mass, hematoma, midline shift, or acute infarct. Impression: No acute intracranial abnormality. Electronically signed by: Patrick Medrano M.D. 09/15/2017 9:39 PM Dictated Date/Time: 09/15/2017 9:35 PM
[2017-09-15] MEDS ORDERED: NovoLIN-R INSULIN PER UNIT CHARGE SC STA (21:53)
--- NOTE | 2017-09-15 23:25 | EMERGENCY ROOM VISIT NOTE ---
History First contact with patient: 21:01 Chief Complaint: HEAD INJURY (MINOR) Stated Complaint: FELL OFF CURB, SCALP WAS BLEEDING, GOOSE EGG History of Present Illness The patient is a 62 year old male who presents to the Emergency Room with complaints of head injury. The patient states that he fell off the curb and hit the back of his head on the concrete. The patient denies any loss of consciousness or any dizziness prior to the fall. Patient currently denies any headache, dizziness, visual changes. The patient takes an aspirin daily but is not on any other blood thinners. The patient denies any neck or back pain. The patient denies any chest pain or shortness of breath. The patient is diabetic. Review of Systems 10 system review was performed and was negative unless stated otherwise history of present illness. Past Medical/Surgical History Medical Problems: (1) Dementia, Unspecified, Without Behavioral Disturbance (2) Diab W Oth Spec Manifest, Type I [Juvenile Type], Not Uncntr (3) Hyperglycemia (4) Hyperglycemia (5) Hyperlipidemia Nec/Nos (6) Hypoglycemia Nos (7) Insulin overdose (8) Mood disorder (9) Parkinson disease (10) Schizophrenia Nos-Unspec Family History Hypertension Social History Smoking Status: Never Smoker Alcohol Use: none Drug Use: none Marital Status: single Housing Status: other Occupation Status: disabled Current/Historical Medications Scheduled Aspirin (Aspirin Ec), 81 MG PO QAM Carbidopa/Levodopa (Sinemet Cr 25MG/100MG), 1 TAB PO QID Cholecalciferol (Vitamin D3), 2,000 UNIT PO DAILY Cyanocobalamin (Cyanocobalamin), 1,000 MCG IM MONTHLY Ferrous Sulfate (Ferrous Sulfate), 325 MG PO QPM Insulin Aspart (Novolog Flexpen), 6 UNITS SQ TIDM Insulin Glargine (Lantus Solostar), 15 UNITS SC QAM Sertraline (Zoloft), 50 MG PO QPM Simvastatin (Zocor), 10 MG PO QPM Physical Exam Vital Signs Date Time Temp Pulse Resp B/P (MAP) Pulse Ox O2 Delivery O2 Flow Rate FiO2 09/15/17 22:20 91 18 117/79 95 Room Air 09/15/17 20:55 36.7 98 18 128/82 94 Room Air Physical Exam GENERAL: 62-year-old white male appears in no acute distress. Patient has a whole body tremor MENTAL Status: Patient is alert and oriented 3. He is answering questions appropriately. HEAD: Patient has a large soft tissue line on the superior aspect of the back of the head. Remainder of head is unremarkable. There is a superficial abrasion but no lacerations. EYES: PERRLA. EOMs intact. EARS: Canals clear. TMs without hemotympanum NECK: Supple, no lymphadenopathy noted. No carotid bruits noted. LUNGS: Clear auscultation without wheezes rales or rhonchi. CARDIAC: Regular rate and rhythm without murmur. Pulses is full and equal throughout. SPINE: Entire spine nontender to palpation. NEURO:Cranial nerves two through 12 intact. Cerebellar function intact with [id number]. Fine motor intact with alternating finger motions. Medical Decision & Procedures ER Provider Diagnostic Interpretation: HEAD CT NONCONTRAST CT DOSE: 537.48 mGy.cm HISTORY: Fall/head injury TECHNIQUE: Multiaxial CT images of the head were performed without the use of intravenous contrast. Automated exposure control was utilized for this study. A dose lowering technique was utilized adhering to the principles of ALARA. Comparison: Head CT 02/13/2017. Findings: The paranasal sinuses and mastoid air cells are clear. The calvarium and skull base are intact. The ventricles and sulci are within normal limits. There is no mass, hematoma, midline shift, or acute infarct. Impression: No acute intracranial abnormality. Electronically signed by: Patrick Medrano M.D. Medications Administered Medications (Trade) Dose Ordered Sig/Emelina Route Start Time Stop Time Status Last Admin Dose Admin Insulin Human Regular (novoLIN-R U-100 PER UNIT) 6 units NOW STAT SC 09/15/17 21:53 09/15/17 21:55 DC 09/15/17 22:17 6 UNITS ED Course The patient was evaluated. The patient's EMR medication list were reviewed. BSG was 412. CT the head was ordered interpreted by the radiologist and myself as above without any acute findings. The patient was give regular insulin 6 units subcu. After 30 minutes the patient's blood sugar was down to 398. I discussed case with Dr. Alarcon who stated that the patient could be discharged and take his insulin at home as needed. The patient was informed of the CT findings and discharged home in stable condition. Medical Decision Differential diagnosis include head contusion, intracranial bleed, subarachnoid hemorrhage, concussion [place] Drug Monitoring Program Search Results: patient reviewed within database Medication Reconcilliation Current Medication List: was personally reviewed by me Blood Pressure Screening Patient's blood pressure: Normal blood pressure Impression Primary Impression: Closed head injury Additional Impression: Elevated blood sugar Departure Information Dispostion Home / Self-Care Condition GOOD Referrals Marcelo Hardin M.D. (PCP) Forms HOME CARE DOCUMENTATION FORM, IMPORTANT VISIT INFORMATION Patient Instructions ED Head Injury Closed, [facility] Additional Instructions Follow head injury handout instructions. Any problems return to ER. Make sure you are monitoring your blood sugars closely and dosing her insulin appropriately. If here blood sugars continue to remain high, follow-up with her family doctor for further evaluation. Problem Qualifiers Primary Impression: Closed head injury Encounter type: initial encounter Qualified Codes: S09.90XA - Unspecified injury of head, initial encounter
[2017-09-15 23:33] VITALS: BP 158/77; PULSE 89; TEMP 36.7; O2SAT 97
== END 2017-09-15 23:34 | disposition home or self-care (01) ==
LOC: C.EDB 20:28 → C.EDD 23:34
DX: S09.90XA Unspecified injury of head, initial encounter (principal); W19.XXXA Unspecified fall, initial encounter; Y92.89 Other specified places as the place of occurrence of the external cause; E11.65 Type 2 diabetes mellitus with hyperglycemia; F03.90 Unspecified dementia, unspecified severity, without behavioral disturbance, psychotic disturbance, mood disturbance, and anxiety; E78.5 Hyperlipidemia, unspecified; F39 Unspecified mood [affective] disorder; G20 Parkinson's disease; F20.9 Schizophrenia, unspecified; Z82.49 Family history of ischemic heart disease and other diseases of the circulatory system; Z79.82 Long term (current) use of aspirin; Z79.4 Long term (current) use of insulin; Z79.899 Other long term (current) drug therapy

== ENCOUNTER → 2017-11-02 | Outpatient (CLI) | payer OTHER ==
[2017-11-02 12:33] LABS: BASO % 0.7 %; BASO ABS # 0.03 K/uL (0-0.2); EOS % 1.6 %; EOS ABS # 0.07 K/uL (0-0.5); HEMATOCRIT 40.1 % (42-52); HEMOGLOBIN 13.6 g/dL (14.0-18.0); IG# 0.01 K/uL (0.00-0.02); LYMPH % 24.2 %; LYMPH ABS # 1.03 K/uL (1.2-3.4); MEAN CORPUSCULAR HEMOGLOBIN 33.3 pg (25-34); MEAN CORPUSCULAR HGB CONC 33.9 g/dl (32-36); MEAN PLATELET VOLUME 12.1 fL (7.4-10.4); MONO % 8.2 %; MONO ABS # 0.35 K/uL (0.11-0.59); NEUT % 65.1 %; NEUT ABS # 2.76 K/uL (1.4-6.5); PLATELET COUNT 156 K/uL (130-400); RED CELL DISTRIBUTION WIDTH CV 13.5 % (11.5-14.5); RED CELL DISTRIBUTION WIDTH SD 48.1 fL (36.4-46.3); WHITE BLOOD COUNT 4.25 K/uL (4.8-10.8)
[2017-11-02 12:45] LABS: HEMOGLOBIN A1C 8.3 % (4.5-5.6)
[2017-11-02 12:51] LABS: ALT/SGPT 11 U/L (12-78); AST/SGOT 15 U/L (15-37); BLOOD UREA NITROGEN 22 mg/dl (7-18); CALCIUM 8.8 mg/dl (8.5-10.1); CARBON DIOXIDE 27 mmol/L (21-32); CREATININE 0.92 mg/dl (0.60-1.40); GLUCOSE 284 mg/dl (70-99); POTASSIUM 4.2 mmol/L (3.5-5.1); SODIUM 137 mmol/L (136-145)
[2017-11-02 13:02] LABS: CHOLESTEROL 145 mg/dl (0-200); LDL CHOLESTEROL CALCULATED 81 mg/dl
== END | disposition home or self-care (01) ==
LOC: C.LAB1850 10:11
PROVIDERS: ATTEND Physician Assistant
DX: N40.0 Benign prostatic hyperplasia without lower urinary tract symptoms (principal); G20 Parkinson's disease; E53.8 Deficiency of other specified B group vitamins; E78.5 Hyperlipidemia, unspecified; E10.9 Type 1 diabetes mellitus without complications

== ENCOUNTER → 2018-03-14 | Outpatient (CLI) | payer OTHER ==
--- NOTE | 2018-03-14 14:32 | DIAGNOSTIC IMAGING REPORT ---
ABDOMEN 2VIEW W/PA CHEST RTN CLINICAL HISTORY: 62 years-old Male presenting with ABD DISCOMFORT, CONSTIPATION. TECHNIQUE: PA view of the chest and supine and upright views of the abdomen were obtained. COMPARISON: 08/30/2014. FINDINGS: Cardiomediastinal silhouette normal. Lungs and pleural spaces clear. Moderate stool burden primarily in the right and transverse colon. Nonobstructive bowel gas pattern. No gross pneumoperitoneum. Allowing for bowel gas and stool, calcifications project over the bilateral kidneys suggesting bilateral nephrolithiasis. Multiple pelvic phleboliths suspected. Intramedullary nail fixation in the left femoral neck and proximal metadiaphysis, partially visualized. IMPRESSION: 1. No acute cardiopulmonary disease. 2. Bilateral nephrolithiasis. 3. Moderate stool burden could suggest constipation. Electronically signed by: Luis Schmitz M.D. 03/14/2018 2:31 PM Dictated Date/Time: 03/14/2018 2:28 PM
== END | disposition home or self-care (01) ==
LOC: C.RAD 13:57
PROVIDERS: ATTEND Physician Assistant
DX: R10.9 Unspecified abdominal pain (principal); K59.00 Constipation, unspecified; N20.0 Calculus of kidney